=== PATIENT | male | born 1985 | race American Indian/Alaskan Native ===

== ENCOUNTER 2017-04-28 16:18 | Emergency (ER) | payer MEDICARE, MEDICAID ==
[2017-04-28 16:19] VITALS: BMI 29.9
[2017-04-28 16:26] VITALS: BP 134/84; PULSE 63; RESP 16; TEMP 98.1; O2SAT 96
[2017-04-28] MEDS ORDERED: Bacitracin 500 Units/gm Oint Foilpak UD TOP ONE (16:37)
[2017-04-28] MEDS ORDERED: Bacitracin 500 Units/gm Oint Foilpak UD ONE (16:39)
--- NOTE | 2017-04-28 16:41 | C.PDOC ---
History Of Present Illness 52 y/o male presents to the ED with complaints of bilateral inner thigh redness x2 days. Pt states skin is irritated from chafing during hot weather and sweating. He also reports scant clear liquid from the area. Denies squeezing the area. Denies fever, chills. B/L INNER THIGH REDNESS X 2 DAYS. PS SKIN IRRITATED FROM CHAFING DURING HOT WEATHER, SWEATING. +SCANT CLEAR LIQUID. DENIES SQUEEZING AREA. EXAM NAD SKIN +1 CM OPEN SORE L UPPER INNER THIGH W OPPOSITE KISSING LESION 2 MM R INNER THIGH. NO INDURATION, FLUCTUANCE, SURROUNDING ERYTHEMA, DC. MDM ABX OINTMENT, WOUND CARE, ADVISED TO KEEP AREA DRY AND CLEAN Time Seen by Provider: 04/28/17 16:32 Chief Complaint (Nursing): Abnormal Skin Integrity History Per: Patient History/Exam Limitations: no limitations Onset/Duration Of Symptoms: Days Current Symptoms Are (Timing): Still Present Severity: Mild Recent travel outside of the [place]: No Past Medical History Reviewed: Historical Data, Nursing Documentation, Vital Signs Vital Signs: Last Vital Signs Temp 98.1 F 04/28/17 16:23 Pulse 63 04/28/17 16:23 Resp 16 04/28/17 16:23 BP 134/84 04/28/17 16:23 Pulse Ox 96 04/28/17 16:43 - Medical History PMH: Asthma, Schizophrenia Family History: States: Unknown Family Hx - Social History Hx Tobacco Use: No Hx Alcohol Use: No Hx Substance Use: No - Immunization History Hx Tetanus Toxoid Vaccination: No Hx Influenza Vaccination: No Hx Pneumococcal Vaccination: No Review Of Systems Except As Marked, All Systems Reviewed And Found Negative. Constitutional: Negative for: Fever, Chills Skin: Positive for: Other (inner thigh redness, irritation; scant clear liquids from the area) Physical Exam - Physical Exam Appears: Non-toxic, No Acute Distress Skin: Warm, Dry, Other (1 cm open sore to left upper inner thigh with opposite kissing lesion 2mm to right thigh. No induration, fluctuance, surrounding erythema or discharge) Head: Atraumatic, Normacephalic Extremity: Normal ROM Neurological/Psych: Oriented x3, Normal Speech, Normal Cognition ED Course And Treatment O2 Sat by Pulse Oximetry: 96 (room air) Pulse Ox Interpretation: Normal Medical Decision Making Medical Decision Making: Prescribed Abx and instructed of wound care. Advised to keep area dry and clean. Disposition Counseled Patient/Family Regarding: Diagnosis, Need For Followup, Rx Given - Disposition Referrals: [facility] [Outside] [facility] [Outside] Disposition: HOME/ ROUTINE Disposition Time: 16:39 Condition: IMPROVED Additional Instructions: How to Prevent Inner Thigh Chafing Keep It Dry Sweating when its very hot, or when exercising can make chafing worse. One useful trick is to keep a small tub of baby powder in your bag so you can sprinkle some on to absorb excess moisture when youre out. Lubricate Your Skin A bit of lubrication will help your thighs glide past each other, rather than pulling or rubbing the skin. Reduce Friction One of the best ways to help prevent thigh chafing is also one of the simplest: wear appropriate clothing. When youre teaming a skirt or dress with bare legs, its easy for your thighs to rub together, so consider wearing a pair of cycling shorts underneath to reduce friction. When exercising, wear clothing made with moisture-wicking fabrics such as synthetic fibers and clothing that has smooth seams this will help to reduce rubbing and keep your skin as dry as possible. 2 Wash and Dry Carefully If you do experience chafing, proper after care is necessary. When your skin is chafed, you might find that some soaps can irritate the skin further. Try to use mild and gentle soaps that are free from fragrances and harsh chemicals, as they are less likely to cause irritation. After washing, make sure you dry your skin carefully, but take care with your towel. Dont be too rough, as this could make any soreness worse. Instead, use the towel to pat yourself dry, and apply baby powder to soak up any excess moisture in chafed areas. 3 Soothe Chafing Inner Thighs We understand that chafing can be painful and so its important to try and relieve as much discomfort as possible. Try aloe vera gel which contains fatty acids like lupeol that are believed to have pain relieving properties. For generations people have applied pure aloe vera gel, straight from the leaves of an aloe plant, to chafed areas to help to soothe and calm red, irritated skin and take the edge off any discomfort. 4 Protect Your Skin Help your dry skin to heal by sealing in moisture with a strong, protective barrier. Prescriptions: Mupirocin 2% Ointment [Bactroban Ointment] 1 appl TP TID #1 tube Forms: General Discharge Instructions - Clinical Impression Clinical Impression: Skin irritation, Superficial ulcer of skin - Scribe Statement The provider has reviewed the documentation as recorded by the Melissa paez Provider Attestation: All medical record entries made by the Melissa were at my direction and personally dictated by me. I have reviewed the chart and agree that the record accurately reflects my personal performance of the history, physical exam, medical decision making, and the department course for this patient. I have also personally directed, reviewed, and agree with the discharge instructions and disposition.
== END 2017-04-28 16:47 | disposition home or self-care (01) ==
LOC: C.ER 16:18
DX: L30.4 Erythema intertrigo (principal); L97.129 Non-pressure chronic ulcer of left thigh with unspecified severity; L97.119 Non-pressure chronic ulcer of right thigh with unspecified severity

== ENCOUNTER 2017-05-05 18:43 | Emergency (ER) | payer MEDICARE, MEDICAID ==
[2017-05-05 18:43] VITALS: BMI 29.9
[2017-05-05 18:49] VITALS: BP 134/83; PULSE 69; RESP 18; TEMP 99.1; O2SAT 99
--- NOTE | 2017-05-05 19:03 | C.PDOC ---
History Of Present Illness 32 yo male come in for evaluation of itchy rash noted to inner tight for past few days. Pt admits, similar sx in past when was seen in ED and received Rx; Bacitracin with improvement. Pt admits, "rash worse during hot, sweaty weather" . Otherwise, pt denies fever, chills, sore throat or throat tightness, cough, SOB, N/V, denies wound discharge or any other active complaints. Ambulate to Ed for evaluation, not in any apparent distress. Time Seen by Provider: 05/05/17 18:52 Chief Complaint (Nursing): Abnormal Skin Integrity History Per: Patient Onset/Duration Of Symptoms: Gradual Current Symptoms Are (Timing): Still Present Past Medical History Reviewed: Historical Data, Nursing Documentation, Vital Signs Vital Signs: Last Vital Signs Temp 99.1 F 05/05/17 18:45 Pulse 69 05/05/17 18:45 Resp 18 05/05/17 18:45 BP 134/83 05/05/17 18:45 Pulse Ox 99 05/05/17 18:45 - Medical History PMH: Asthma, Schizophrenia Family History: States: No Known Family Hx - Social History Hx Tobacco Use: No Hx Alcohol Use: No Hx Substance Use: No - Immunization History Hx Tetanus Toxoid Vaccination: No Hx Influenza Vaccination: No Hx Pneumococcal Vaccination: No Review Of Systems Except As Marked, All Systems Reviewed And Found Negative. Constitutional: Negative for: Fever, Chills ENT: Negative for: Throat Pain Cardiovascular: Negative for: Chest Pain Respiratory: Negative for: Cough, Shortness of Breath Gastrointestinal: Negative for: Nausea, Vomiting, Abdominal Pain Genitourinary: Negative for: Dysuria, Frequency Skin: Positive for: Rash Neurological: Negative for: Weakness, Numbness Physical Exam - Physical Exam Appears: Well, Non-toxic Skin: Normal Color, Warm, Rash (0.5 CM OPEN SORE L UPPER INNER THIGH W ADJUCENT KISSING LESION 2 MM. NO INDURATION, FLUCTUANCE, SURROUNDING ERYTHEMA, DISCHARGE. ) Oral Mucosa: Moist Tongue: Normal Appearing, No Lesions Lips: Normal Appearing Neck: Supple Gastrointestinal/Abdominal: Soft, No Tenderness, No Distention, No Guarding Male Genital: No Scrotal Swelling Extremity: Normal ROM, No Pedal Edema, No Swelling Neurological/Psych: Oriented x3, Normal Speech ED Course And Treatment O2 Sat by Pulse Oximetry: 99 Pulse Ox Interpretation: Normal Progress Note: Records from previous ED visits review. On re-evaluation, pt is afebrile, hemodynamicaly stable. Non-toxic. ABd: benign. Back: (-) CVA tenderness. SKin: exam c/w Left inner thigh rash likely tinear cruris. No edema, no erythema, no wound draining, no flactulance. Pt advised and ref. to f /u with PMD, Derm in 2-3 days for re-eval. return if any new changes. Disposition Counseled Patient/Family Regarding: Diagnosis, Need For Followup, Rx Given - Disposition Referrals: [facility] at [facility] [Outside] Disposition: HOME/ ROUTINE Disposition Time: 19:02 Condition: STABLE Additional Instructions: Keep area clean, dry Use cream as prescribed Follow up with PMD, Dermatology in 2-3 days for re-evaluation. Return to ED if any worsening or new changes. Prescriptions: Clotrimazole 1% Cream [Lotrimin 1%] 1 mg TP BID #1 tube Instructions: Acute Rash (ED), Tinea Corporis (ED) - Clinical Impression Clinical Impression: Tinea cruris
== END 2017-05-05 19:21 | disposition home or self-care (01) ==
LOC: C.ER 18:43
DX: B35.6 Tinea cruris (principal)

== ENCOUNTER 2018-04-28 17:58 | Emergency (ER) | payer MEDICAID, MEDICARE ==
[2018-04-28 17:59] VITALS: BMI 29.9
[2018-04-28 18:23] VITALS: RESP 18
--- NOTE | 2018-04-28 19:08 | C.PDOC ---
History Of Present Illness 33 y/o male presents to the ER complaining of throat pain and swelling for the past 7 days. States he is noticing a lot of phlegm production, but no associated cough or nasal congestion. Otherwise denies any fever, chills, difficulty swallowing, vomiting, or rash. Time Seen by Provider: 04/28/18 18:47 Chief Complaint (Nursing): ENT Problem History Per: Patient History/Exam Limitations: None Onset/Duration Of Symptoms: Days (x 7) Current Symptoms Are (Timing): Still Present Past Medical History Reviewed: Historical Data, Nursing Documentation, Vital Signs Vital Signs: Last Vital Signs Temp 98.2 F 04/28/18 18:20 Pulse 64 04/28/18 18:20 Resp 18 04/28/18 18:20 BP 108/72 04/28/18 18:20 Pulse Ox 96 04/28/18 19:10 - Medical History PMH: Asthma, Schizophrenia Family History: States: Unknown Family Hx - Social History Hx Tobacco Use: No Hx Alcohol Use: No Hx Substance Use: No - Immunization History Hx Tetanus Toxoid Vaccination: No Hx Influenza Vaccination: No Hx Pneumococcal Vaccination: No Review Of Systems Except As Marked, All Systems Reviewed And Found Negative. Constitutional: Negative for: Fever, Chills ENT: Positive for: Throat Pain, Throat Swelling. Negative for: Nose Congestion Respiratory: Positive for: Sputum. Negative for: Cough, Shortness of Breath, Wheezing Gastrointestinal: Negative for: Vomiting Skin: Negative for: Rash Physical Exam - Physical Exam Appears: Non-toxic, No Acute Distress Skin: Normal Color, Warm, No Rash Head: Atraumatic, Normacephalic Eye(s): bilateral: Normal Inspection Ear(s): Bilateral: Normal Oral Mucosa: Moist Throat: Erythema (mild pharyngeal erythema), No Exudate, No Mass Neck: Normal ROM, Supple Lymphatic: Adenopathy ((+) B/L cervical lymphadenopathy) Chest: Symmetrical Cardiovascular: Rhythm Regular, No Murmur Respiratory: Normal Breath Sounds, No Accessory Muscle Use, No Rhonchi, No Wheezing Extremity: Bilateral: Atraumatic, Normal Color And Temperature, Normal ROM Neurological/Psych: Oriented x3, Normal Speech ED Course And Treatment O2 Sat by Pulse Oximetry: 96 (RA) Pulse Ox Interpretation: Normal Medical Decision Making Medical Decision Making: Plan: --Amoxicillin 500 mg PO --Motrin 600 mg PO Counseled patient regarding exam findings and diagnosis. Patient will be discharged home with antibiotics. There is agreement to discharge plan. Disposition - Disposition Referrals: [facility] [Outside] Disposition: HOME/ ROUTINE Disposition Time: 19:19 Condition: GOOD Additional Instructions: Follow up with the medical doctor/clinic within 1-2 days without fail. Return if worsened. Prescriptions: Amoxicillin [Amoxil 500 mg Cap] 500 mg PO TID #29 cap Ibuprofen [Motrin] 1 tab PO TID PRN #30 tab PRN Reason: Pain Instructions: Sore Throat, Adult (DC) Forms: [employer] (Setswana) - Clinical Impression Clinical Impression: Pharyngitis - PA / BOILING OFF WINDER / Resident Statement MD/DO has reviewed & agrees with the documentation as recorded. - Scribe Statement The provider has reviewed the documentation as recorded by the Scribe (Juanita Vargas) All medical record entries made by the Scribe were at my direction and personally dictated by me. I have reviewed the chart and agree that the record accurately reflects my personal performance of the history, physical exam, medical decision making, and the department course for this patient. I have also personally directed, reviewed, and agree with the discharge instructions and disposition.
[2018-04-28 19:33] VITALS: BP 119/84; PULSE 56; TEMP 98.7
[2018-04-28 21:59] VITALS: O2SAT 96
== END 2018-04-28 19:34 | disposition home or self-care (01) ==
LOC: C.ER 17:58
DX: J02.9 Acute pharyngitis, unspecified (principal)

== ENCOUNTER 2019-01-31 09:59 | Emergency (ER) | payer SELFPAY ==
[2019-01-31 10:06] VITALS: BP 129/79; PULSE 87; RESP 18; TEMP 98.2; O2SAT 98; BMI 31.2
[2019-01-31] MEDS ORDERED: Amoxicillin-Clav 875-125 mg Tab PO STA (10:23)
[2019-01-31] MEDS ORDERED: Amoxicillin-Clav 875-125 mg Tab PO ONE (10:29)
--- NOTE | 2019-01-31 10:32 | C.PDOC ---
History Of Present Illness 34 y/o male presents to the ED reporting sore throat for 4 days. He also reports associated itchy throat, headache, nasal congestion and chills. He denies any seasonal allergies or sick contacts. He is not on any meds. Pt denies rash, fever, dizziness, weakness, cough, chest pain, nausea, and vomiting. Time Seen by Provider: 01/31/19 10:22 Chief Complaint (Nursing): Cough, Cold, Congestion History Per: Patient History/Exam Limitations: no limitations Onset/Duration Of Symptoms: Days (x4) Current Symptoms Are (Timing): Still Present Past Medical History Reviewed: Historical Data, Nursing Documentation, Vital Signs Vital Signs: Last Vital Signs Temp 98.2 F 01/31/19 10:04 Pulse 87 01/31/19 10:04 Resp 18 01/31/19 10:04 BP 129/79 01/31/19 10:04 Pulse Ox 98 01/31/19 10:04 - Medical History PMH: Asthma, Schizophrenia Family History: States: Unknown Family Hx - Social History Hx Tobacco Use: No Hx Alcohol Use: No Hx Substance Use: No - Immunization History Hx Tetanus Toxoid Vaccination: No Hx Influenza Vaccination: No Hx Pneumococcal Vaccination: No Review Of Systems Constitutional: Positive for: Chills. Negative for: Fever Eyes: Negative for: Other (photophobia ) ENT: Positive for: Nose Congestion, Throat Pain, Other (itchy throat ) Respiratory: Negative for: Cough Gastrointestinal: Negative for: Nausea, Vomiting Musculoskeletal: Negative for: Neck Pain Skin: Negative for: Rash Neurological: Positive for: Headache. Negative for: Dizziness Physical Exam - Physical Exam Appears: Non-toxic, No Acute Distress Skin: Warm, Dry Head: Atraumatic, Normacephalic Eye(s): bilateral: Normal Inspection, PERRL Ear(s): Left: Normal, Right: TM Obscured By Wax Nose: Normal Oral Mucosa: Moist Tongue: Normal Appearing Lips: Normal Appearing Throat: Erythema, No Exudate, Other (enlarged tonsils ) Neck: Normal ROM, Supple Chest: Symmetrical Cardiovascular: Rhythm Regular Respiratory: Normal Breath Sounds, No Accessory Muscle Use, No Wheezing Gastrointestinal/Abdominal: Soft, No Tenderness Neurological/Psych: Oriented x3, Normal Speech, Normal Cognition ED Course And Treatment O2 Sat by Pulse Oximetry: 98 (RA) Pulse Ox Interpretation: Normal Medical Decision Making Medical Decision Making: Impression: Pharyngitis Plans: -- Augmentin given now Continue Augmentin twice a day for 7 days Tylenol as needed for bodyaches Salt water gargles Rest and Hydration follow up with PMD in 1-2 days Patient verbalizes understanding and is in agreement with plan. Patient is stable for discharge. Disposition Counseled Patient/Family Regarding: Diagnosis, Need For Followup, Rx Given - Disposition Referrals: Lindsey Huizar MD [Staff Provider] - Disposition: HOME/ ROUTINE Disposition Time: 10:28 Condition: STABLE Additional Instructions: Please review handout for Bacterial Respiratory Infection and Sore throat Continue Augmentin twice a day for 7 days Tylenol as needed for bodyaches Salt water gargles 4 times a day for sore throat Rest and Hydration is important follow up with PMD in 1-2 days Return to ED if symptoms worsen Prescriptions: Acetaminophen [Tylenol] 325 mg PO Q6 PRN #30 capsule PRN Reason: Pain, Moderate (4-7) Amoxicillin/Clavulanate [Augmentin 875 MG-125 MG] 1 tab PO BID #13 tab Instructions: Sore Throat, Adult (DC), Bacterial Upper Respiratory Infection, Adult (DC) Forms: [employer] (Urdu) - Clinical Impression Clinical Impression: Pharyngitis, Sore throat - PA / ENERGY AUDIT ADVISOR / Resident Statement / has reviewed & agrees with the documentation as recorded. - Scribe Statement The provider has reviewed the documentation as recorded by the Melissa Breaux Do All medical record entries made by the Scribe were at my direction and personally dictated by me. I have reviewed the chart and agree that the record accurately reflects my personal performance of the history, physical exam, medical decision making, and the department course for this patient. I have also personally directed, reviewed, and agree with the discharge instructions and disposition.
== END 2019-01-31 10:38 | disposition home or self-care (01) ==
LOC: C.ER 09:59
DX: J02.9 Acute pharyngitis, unspecified (principal); F20.9 Schizophrenia, unspecified

== ENCOUNTER 2019-02-10 13:42 | Emergency (ER) | payer BC ==
[2019-02-10 13:42] VITALS: BMI 29.9
[2019-02-10 13:51] VITALS: BP 127/81; PULSE 93; RESP 18; TEMP 98.9; O2SAT 100
--- NOTE | 2019-02-10 14:15 | C.PDOC ---
History Of Present Illness 34-year-old male presents to the ED for evaluation of sore throat which began several days ago. Patient was evaluated in this ED on 01/31 for same, and was given Augmentin. Patient states that he completed the course and his symptoms resolved, but then I was exposed to the cold and now it hurts again. Patient reports occasional dry cough. He denies fever pr other associated symptoms. SORE THROAT X SEV DAYS. SEEN 01/31 FOR SAME, GIVEN AUGMENTIN. PS COMPLETED AND SX RESOLVED, "BUT THEN I WAS EXPOSED TO THE COLD AND NOW IT HURTS AGAIN". NO FEVER. OCC DRY COUGH. NO OTHER ASSOC SX EXAM NEG Time Seen by Provider: 02/10/19 13:54 Chief Complaint (Nursing): Cough, Cold, Congestion History Per: Patient History/Exam Limitations: no limitations Onset/Duration Of Symptoms: Days Past Medical History Reviewed: Historical Data, Nursing Documentation, Vital Signs Vital Signs: Last Vital Signs Temp 98.9 F 02/10/19 13:50 Pulse 93 H 02/10/19 13:50 Resp 18 02/10/19 13:50 BP 127/81 02/10/19 13:50 Pulse Ox 100 02/10/19 13:50 - Medical History PMH: Asthma, Schizophrenia Surgical History: No Surg Hx Family History: States: Unknown Family Hx - Social History Hx Tobacco Use: No Hx Alcohol Use: No Hx Substance Use: No - Immunization History Hx Tetanus Toxoid Vaccination: Yes Hx Influenza Vaccination: Yes Hx Pneumococcal Vaccination: No Review Of Systems Constitutional: Negative for: Fever, Chills ENT: Positive for: Throat Pain Respiratory: Negative for: Cough Physical Exam - Physical Exam Appears: Non-toxic, No Acute Distress Skin: Normal Color, Warm, Dry Head: Atraumatic, Normacephalic Eye(s): bilateral: Normal Inspection Oral Mucosa: Moist Throat: Normal, No Erythema, No Exudate Neck: Supple Chest: Symmetrical Extremity: Normal ROM Neurological/Psych: Oriented x3, Normal Speech, Normal Cognition ED Course And Treatment O2 Sat by Pulse Oximetry: 100 (on RA) Pulse Ox Interpretation: Normal Disposition Counseled Patient/Family Regarding: Diagnosis, Need For Followup, Rx Given - Disposition Referrals: [facility] [Outside] [facility] [Outside] Disposition: HOME/ ROUTINE Disposition Time: 14:10 Condition: STABLE Prescriptions: Acetaminophen [Tylenol Extra Strength] 2 tab PO Q6 #30 tablet Benzonatate [Tessalon Perles] 200 mg PO TID PRN #15 sgl PRN Reason: Cough Ibuprofen [Motrin] 600 mg PO Q6 #30 tab Instructions: Sore Throat, Adult (DC) Forms: [employer] (Tajik) - Clinical Impression Clinical Impression: Sore throat, Cough - Scribe Statement The provider has reviewed the documentation as recorded by the Scribe (Janelle Richard) Provider Attestation: All medical record entries made by the Scribe were at my direction and personally dictated by me. I have reviewed the chart and agree that the record accurately reflects my personal performance of the history, physical exam, medical decision making, and the department course for this patient. I have also personally directed, reviewed, and agree with the discharge instructions and disposition.
== END 2019-02-10 14:21 | disposition home or self-care (01) ==
LOC: C.ER 13:42
DX: J02.9 Acute pharyngitis, unspecified (principal); R05 Cough

== ENCOUNTER 2019-02-11 15:25 | Emergency (ER) | payer BC ==
[2019-02-11 15:26] VITALS: BMI 29.9
[2019-02-11 15:44] VITALS: RESP 18; O2SAT 96
--- NOTE | 2019-02-11 16:57 | C.PDOC ---
History Of Present Illness 34 y/o male comes in to ED complaining of wound between his buttocks x1 week. He states that it has gotten progressively worse and has grown concern because its very sensitive to touch, especially when he wipes. He denies any trauma, fever, chills, nausea, vomiting, abdominal pain, or diarrhea. Time Seen by Provider: 02/11/19 16:39 Chief Complaint (Nursing): Abnormal Skin Integrity History Per: Patient History/Exam Limitations: no limitations Onset/Duration Of Symptoms: Days Current Symptoms Are (Timing): Still Present Past Medical History Reviewed: Historical Data, Nursing Documentation, Vital Signs Vital Signs: Last Vital Signs Temp 98.4 F 02/11/19 15:42 Pulse 79 02/11/19 15:42 Resp 18 02/11/19 15:42 BP 121/84 02/11/19 15:42 Pulse Ox 96 02/11/19 15:42 - Medical History PMH: Asthma, Schizophrenia Family History: States: No Known Family Hx - Social History Hx Tobacco Use: No Hx Alcohol Use: No Hx Substance Use: No - Immunization History Hx Tetanus Toxoid Vaccination: Yes Hx Influenza Vaccination: Yes Hx Pneumococcal Vaccination: No Review Of Systems Constitutional: Negative for: Fever, Chills Cardiovascular: Negative for: Chest Pain Respiratory: Negative for: Shortness of Breath Gastrointestinal: Positive for: Rectal Pain. Negative for: Nausea, Vomiting, Abdominal Pain, Diarrhea, Melena, Hematochezia Musculoskeletal: Positive for: Other ("Wound" in between buttocks). Negative for: Back Pain Skin: Negative for: Rash, Bruising Physical Exam - Physical Exam Appears: Non-toxic, No Acute Distress Skin: Warm, Dry Head: Atraumatic Eye(s): bilateral: Normal Inspection Oral Mucosa: Moist Neck: Supple Cardiovascular: Rhythm Regular Respiratory: Normal Breath Sounds, No Wheezing Gastrointestinal/Abdominal: Soft, No Tenderness Rectal: Rectal Tone, Other (in the intergluteal cleft, there is erythema and 4 small superficial abrasions, tender to touch, not actively draining) Extremity: No Deformity, No Swelling Extremity: Bilateral: Atraumatic, Normal ROM Neurological/Psych: Oriented x3, Normal Speech ED Course And Treatment O2 Sat by Pulse Oximetry: 96 (RA) Pulse Ox Interpretation: Normal Medical Decision Making Medical Decision Making: Plan: --Keflex 500 mg PO Disposition Counseled Patient/Family Regarding: Diagnosis, Need For Followup, Rx Given - Disposition Referrals: Lindsey Huizar MD [Staff Provider] - Disposition: HOME/ ROUTINE Disposition Time: 17:20 Condition: STABLE Additional Instructions: Continue natibiotics four times a day for 7 days start ointment daily for 7 days follow up with PMD in 1-2 days Return to the ED if symptoms worsen Prescriptions: Cephalexin [cephalexin] 500 mg PO QID #27 cap Mupirocin 2% Ointment [Bactroban Ointment] 1 appl TP DAILY 7 Days #1 tube Instructions: Cellulitis (Skin Infection), Adult (DC) Forms: [employer] (Tamazight) - Clinical Impression Clinical Impression: Skin lesion, Cellulitis - PA / TAPE TRANSFERRER / Resident Statement MD/DO has reviewed & agrees with the documentation as recorded. - Scribe Statement The provider has reviewed the documentation as recorded by the Scribe Avis Chandler All medical record entries made by the Scribabraham were at my direction and personally dictated by me. I have reviewed the chart and agree that the record accurately reflects my personal performance of the history, physical exam, medical decision making, and the department course for this patient. I have also personally directed, reviewed, and agree with the discharge instructions and disposition.
[2019-02-11 17:20] VITALS: BP 126/78; PULSE 84; TEMP 98.5
== END 2019-02-11 17:31 | disposition home or self-care (01) ==
LOC: C.ER 15:25
DX: L03.317 Cellulitis of buttock (principal); L98.9 Disorder of the skin and subcutaneous tissue, unspecified